=== PATIENT | male | born 1965 | race Caucasian/White ===

== ENCOUNTER 2020-09-13 16:58 | Inpatient (IN) | payer BC ==
[2020-09-13] MEDS ORDERED: SODIUM CHLORIDE 0.9% 1,000 ML IV ONE (17:07)
--- NOTE | 2020-09-13 17:09 | ED ---
General Adult HPI - General Chief complaint: Altered Mental Status Stated complaint: unresponsive Source: EMS Mode of arrival: EMS Limitations: altered mental status - History of Present Illness Initial comments: Patient presents to the ED by ambulance for evaluation. Per EMS, the patient's fiance reported to them that she left the patient for about a minute, and when she returned she found the patient unresponsive and lying on the ground. Per EMS, the patient's fiance also reported that the patient had "convulsions". Patient's blood glucose was 111 per EMS. Patient was transported to the ED in a c-collar. Per EMS, the patient's eyes have been open, but he has been unresponsive since they have been with him. Patient is not answering any questions at this time, and no other history is available at this time. - Related Data Home Medications Medication Instructions Recorded Confirmed EPINEPHrine (Auto Inject) [Epipen] 0.3 mg IM ONCE PRN 09/13/20 09/13/20 Glycopyrrolate [Robinul] 1 mg PO Q8H 09/13/20 09/13/20 Metoprolol Tartrate [Lopressor] 25 mg PO DAILY 09/13/20 09/13/20 Omeprazole 20 mg PO DAILY 09/13/20 09/13/20 Pyridostigmine [Mestinon] 60 mg PO TID 09/13/20 09/13/20 Rosuvastatin Calcium [Crestor] 40 mg PO DAILY 09/13/20 09/13/20 azaTHIOprine [Imuran] 100 mg PO DAILY 09/13/20 09/13/20 metFORMIN HCL [Glucophage] 1,000 mg PO BID 09/13/20 09/13/20 valACYclovir HCL [Valtrex] 500 mg PO BID 09/13/20 09/13/20 Allergies Allergy/AdvReac Type Severity Reaction Status Date / Time Penicillins Allergy Unknown Verified 09/13/20 17:56 Childhood Review of Systems ROS Statement: Those systems with pertinent positive or pertinent negative responses have been documented in the HPI. ROS Other: All systems not noted in ROS Statement are negative. Limitations: ROS unobtainable due to patients medical condition Past Medical History Past Medical History: Unable to Obtain History of Any Multi-Drug Resistant Organisms: Unobtainable Past Surgical History: Unable to Obtain Past Psychological History: Unable to Obtain Smoking Status: Unknown if ever smoked Past Alcohol Use History: Unable to Obtain Past Drug Use History: Unable to Obtain - Past Family History Father Additional Family Medical History / Comment(s): at 33 for [place] Mother Family Medical History: Cancer Additional Family Medical History / Comment(s): at 85 - Uterine Cancer General Exam Limitations: altered mental status General appearance: other (Patient's eyes are open, and he is blinking, but he is nonverbal and he has no spontaneous extremity movement) Head exam: Present: atraumatic, normocephalic Eye exam: Present: normal appearance, PERRL ENT exam: Present: mucous membranes moist Neck exam: Present: other (C-collar is in place; trachea is in midline) Respiratory exam: Present: normal lung sounds bilaterally. Absent: respiratory distress, wheezes, rales, rhonchi, stridor Cardiovascular Exam: Present: regular rate, normal rhythm, normal heart sounds, other (Normal radial pulses bilaterally) GI/Abdominal exam: Present: soft. Absent: distended, tenderness, guarding Extremities exam: Present: normal inspection. Absent: pedal edema Back exam: Present: normal inspection Neurological exam: Present: other (Patient's eyes are open, and he is blinking, but he is nonverbal and he has no spontaneous extremity movement; patient has no response to painful stimulus; PERRL) Skin exam: Present: warm, dry, intact, normal color Course Vital Signs 09/13/20 09/13/20 09/13/20 17:02 17:15 17:30 Temperature 98.2 F Pulse Rate 82 91 86 Pulse Rate [ Pulse Oximetery ] Respiratory 16 16 16 Rate Blood Pressure 142/91 142/91 159/95 Blood Pressure [Left Arm Supine] O2 Sat by Pulse 100 100 99 Oximetry 09/13/20 09/13/20 09/13/20 17:45 18:30 20:03 Temperature 98.4 F Pulse Rate 88 76 Pulse Rate [ 77 Pulse Oximetery ] Respiratory 18 14 16 Rate Blood Pressure 139/91 144/89 Blood Pressure 150/78 [Left Arm Supine] O2 Sat by Pulse 99 100 97 Oximetry - Reevaluation(s) Reevaluation #1: 09/13/20 17:23 Case, H&P and pending ED workup were discussed with Dr. Tam (neur ointerventionalist). He states that he will follow-up on the patient's CT imaging. He has no further recommendations at this time. 09/13/20 17:42 Dr. Tam states that he has reviewed the patient's CT/CTA imaging himself, and he does not see any abnormality. Given that the patient's symptoms are now improving, he does not feel that the patient is a TPA candidate at this time. 09/13/20 17:51 Patient is now in A&O 3 and moving all 4 extremities. Patient states that he does not recall getting to the emergency department today. Patient denies having any pain at this time. Horace arenas is now in the ED at bedside with the patient. She reports that she left the patient for about a minute while they were outside on their property, and when she returned she found the patient unresponsive and laying face down. She states that she turned him over, and she states that the patient had some "twitching" movements of his upper extremities. She states that she then called for an ambulance with the patient. Patient reportedly has a history of myasthenia gravis for which she is followed by a neurologist at [facility]. Patient also reportedly had seizures as a child, but is not currently taking any antiepileptic medications. Forrest reports that they did have some verbal arguments today. 09/13/20 19:06 Case, H&P, test results, my discussions with Dr. Tam as above and ED management were discussed with Dr. Mosher. He accepts hospital admission. He agrees with neurology consultation. He recommends ordering prolactin and CK levels. He has no further recommendations at this time. 09/13/20 19:11 Patient is now much more alert and responsive. Patient currently has a nonfocal neurological exam. Patient continues to deny having any symptoms besides feeling weak and tired. Patient, forrest and daughter are all aware of the patient's test results, and they all agree with hospital admission at this time. EKG Findings - EKG Comments: EKG Findings:: Normal sinus rhythm, ventricular rate of 88 bpm, no ectopy, normal OH and QRS intervals, prolonged QTc interval of 481 ms, normal axis, no ST or T-wave abnormality Medical Decision Making - Medical Decision Making Patient's labs and imaging studies are all fairly unremarkable. Given the report from the patient's forrest, I suspect that the patient may have had a seizure, and that may be the explanation for the patient's symptoms and ED presentation. Will admit the patient to the hospital for observation and neurology consultation. Dr. Mosher has accepted hospital admission. - Lab Data Result diagrams: 09/13/20 18:23 09/13/20 17:30 Lab Results 09/13/20 09/13/20 09/13/20 Range/Units 17:30 17:30 17:30 WBC (3.8-10.6) k/uL RBC (4.30-5.90) m/uL Hgb (13.0-17.5) gm/dL Hct (39.0-53.0) % MCV (80.0-100.0) fL MCH (25.0-35.0) pg MCHC (31.0-37.0) g/dL RDW (11.5-15.5) % Plt Count (150-450) k/uL MPV Neutrophils % % Lymphocytes % % Monocytes % % Eosinophils % % Basophils % % Neutrophils # (1.3-7.7) k/uL Lymphocytes # (1.0-4.8) k/uL Monocytes # (0-1.0) k/uL Eosinophils # (0-0.7) k/uL Basophils # (0-0.2) k/uL PT (9.0-12.0) sec INR (<1.2) APTT (22.0-30.0) sec Sodium 138 (137-145) mmol/L Potassium 4.0 (3.5-5.1) mmol/L Chloride 105 (98-107) mmol/L Carbon Dioxide 25 (22-30) mmol/L Anion Gap 8 mmol/L BUN 19 (9-20) mg/dL Creatinine 0.81 (0.66-1.25) mg/dL Est GFR (CKD-EPI)AfAm >90 (>60 ml/min/1.73 sqM) Est GFR (CKD-EPI)NonAf >90 (>60 ml/min/1.73 sqM) Glucose 106 H (74-99) mg/dL Calcium 9.1 (8.4-10.2) mg/dL Total Bilirubin 0.7 (0.2-1.3) mg/dL AST 37 (17-59) U/L ALT 35 (4-49) U/L Alkaline Phosphatase 49 (38-126) U/L Creatine Kinase 322 H (55-170) U/L Troponin I <0.012 (0.000-0.034) ng/mL Total Protein 7.0 (6.3-8.2) g/dL Albumin 4.3 (3.5-5.0) g/dL Serum Alcohol <10 mg/dL 09/13/20 09/13/20 Range/Units 18:23 18:23 WBC 7.5 (3.8-10.6) k/uL RBC 4.05 L (4.30-5.90) m/uL Hgb 13.4 (13.0-17.5) gm/dL Hct 38.5 L (39.0-53.0) % MCV 95.1 (80.0-100.0) fL MCH 33.2 (25.0-35.0) pg MCHC 34.9 (31.0-37.0) g/dL RDW 12.9 (11.5-15.5) % Plt Count 185 (150-450) k/uL MPV 7.6 Neutrophils % 75 % Lymphocytes % 14 % Monocytes % 8 % Eosinophils % 2 % Basophils % 0 % Neutrophils # 5.7 (1.3-7.7) k/uL Lymphocytes # 1.0 (1.0-4.8) k/uL Monocytes # 0.6 (0-1.0) k/uL Eosinophils # 0.1 (0-0.7) k/uL Basophils # 0.0 (0-0.2) k/uL PT 10.6 (9.0-12.0) sec INR 1.0 (<1.2) APTT 18.0 L (22.0-30.0) sec Sodium (137-145) mmol/L Potassium (3.5-5.1) mmol/L Chloride (98-107) mmol/L Carbon Dioxide (22-30) mmol/L Anion Gap mmol/L BUN (9-20) mg/dL Creatinine (0.66-1.25) mg/dL Est GFR (CKD-EPI)AfAm (>60 ml/min/1.73 sqM) Est GFR (CKD-EPI)NonAf (>60 ml/min/1.73 sqM) Glucose (74-99) mg/dL Calcium (8.4-10.2) mg/dL Total Bilirubin (0.2-1.3) mg/dL AST (17-59) U/L ALT (4-49) U/L Alkaline Phosphatase (38-126) U/L Creatine Kinase (55-170) U/L Troponin I (0.000-0.034) ng/mL Total Protein (6.3-8.2) g/dL Albumin (3.5-5.0) g/dL Serum Alcohol mg/dL - Radiology Data Radiology results: report reviewed (Chest x-ray: Hypoventilatory changes; pelvis x-ray: No acute osseous abnormality) Noncontrast head CT: No acute intracranial abnormality CT angiography head/neck: No definite acute abnormality of the CTA head/neck within the limitations of the study. Noncontrast cervical spine CT: There is no acute fracture or dislocation evident in the cervical spine. Critical Care Time Critical Care Time: Yes Total Critical Care Time: 60 Disposition Clinical Impression: Unresponsive episode Narrative: Possible seizure Disposition: ADMITTED IP TO THIS [facility] Condition: Stable Is patient prescribed a controlled substance at d/c from ED?: No Time of Disposition: 19:07
--- NOTE | 2020-09-13 17:30 | CT ---
EXAM: CT brain wo con for TPA CLINICAL HISTORY: Patient found unresponsive. Code stroke. COMPARISON: None TECHNIQUE: Contiguous axial noncontrast images of the brain were obtained. Coronal and sagittal refor mats were generated and reviewed. Automated dose control was used for this exam. FINDINGS: There is no evidence for intracranial hemorrhage, mass effect or midline shift. The white matter is g rossly preserved. Ventricular size and configuration is within normal limits for degree of parenchymal volume. The paranasal sinuses are clear. The mastoid air cells are clear. No evidence for calvarial fracture. IMPRESSION: No acute intracranial abnormality.
--- NOTE | 2020-09-13 17:58 | CT ---
EXAMINATION TYPE: CT angio head neck DATE OF EXAM: 09/13/2020 HISTORY: neuro deficit COMPARISON: None available. CT DLP: 600.4 mGycm. Automated Exposure Control for Dose Reduction was Utilized. TECHNIQUE: CTA scan of the head and neck is performed with IV Contrast, patient injected with 65 mL of Isovue 370, axial images are obtained, coronal and sagittal reformatted images are reviewed. Three -D reconstructed images are created on an independent workstation and reviewed. FINDINGS: There is decreased opacification of the arteries, limiting evaluation. There is normal three-vessel b ranching of the aorta. There is mild less than 50% stenosis of the left vertebral artery V4 segment. No evidence of high-grade stenosis, dissection or aneurysm seen in the bilateral common carotid, cerv ical internal carotid and vertebral arteries. There is no evidence of high-grade stenosis, dissection or aneurysm in the intracranial internal nichole tid arteries, anterior, middle and posterior cerebral arteries as well as in the imaged vertebral and basilar arteries. The communicating arteries are unremarkable. IMPRESSION: No definite acute abnormality of the CTA head/neck within the limitations of the study.
--- NOTE | 2020-09-13 17:59 | XR ---
Result: History: Pain status post fall. Comparison: None available. Technique: AP view of the pelvis was reviewed. Findings: No acute fracture or dislocation is seen. The visualized osseous structures are in anatomic alignmen t. The bilateral hips are grossly preserved. Impression: No acute osseous abnormality.
--- NOTE | 2020-09-13 18:00 | XR ---
EXAMINATION TYPE: XR chest 1V portable DATE OF EXAM: 09/13/2020 COMPARISON: NONE HISTORY: Altered mental status. TECHNIQUE: Single frontal view of the chest is obtained. FINDINGS: The lungs are hypoaerated. There is mild perihilar hazy opacity. There is no significant i nfiltrate, pleural effusion, or pneumothorax seen. The cardiac silhouette size is mildly enlarged. The osseous structures are intact. IMPRESSION: Hypoventilatory changes.
[2020-09-13 18:09] LABS: ALT 35 U/L (4-49); AST 37 U/L (17-59); African American GFR (CKD) >90 (>60 ml/min/1.73 sqM); Albumin 4.3 g/dL (3.5-5.0); Alcohol <10 mg/dL; Alkaline Phosphatase 49 U/L (38-126); Anion Gap 8 mmol/L; Blood Urea Nitrogen 19 mg/dL (9-20); Calcium 9.1 mg/dL (8.4-10.2); Carbon Dioxide 25 mmol/L (22-30); Chloride 105 mmol/L (98-107); Glucose 106 mg/dL (74-99); Non-African American GFR(CKD) >90 (>60 ml/min/1.73 sqM); Sodium 138 mmol/L (137-145); Total Bilirubin 0.7 mg/dL (0.2-1.3)
[2020-09-13 18:42] LABS: Basophils % (A) 0 %; Eosinophils # (A) 0.1 k/uL (0-0.7); Eosinophils % (A) 2 %; HCT 38.5 % (39.0-53.0); HGB 13.4 gm/dL (13.0-17.5); Lymphocytes % (A) 14 %; MCH 33.2 pg (25.0-35.0); MCHC 34.9 g/dL (31.0-37.0); MCV 95.1 fL (80.0-100.0); Mean Platelet Volume 7.6; Monocytes # (A) 0.6 k/uL (0-1.0); Monocytes % (A) 8 %; Neutrophils # (A) 5.7 k/uL (1.3-7.7); Neutrophils % (A) 75 %; Platelet Count 185 k/uL (150-450); RBC 4.05 m/uL (4.30-5.90); RDW 12.9 % (11.5-15.5); WBC 7.5 k/uL (3.8-10.6)
--- NOTE | 2020-09-13 18:47 | CT ---
EXAMINATION TYPE: CT cervical spine wo con DATE OF EXAM: 09/13/2020 COMPARISON: None available. HISTORY: Pain status post fall. Automated exposure control for dose reduction was used. TECHNIQUE: CT scan of the cervical spine is obtained without contrast, axial images are obtained, sa gittal and coronal reformatted images are also reviewed. FINDINGS: Cervical spine is visualized in its entirety from C1 through upper thoracic levels, demonst rates satisfactory alignment without evidence of acute fracture or dislocation. There is mild to mode rate cervical spondylosis most notable at C5-C7. Prevertebral soft tissue appears within normal limit s. The C1-C2 articulation is within normal limits on the coronal images. IMPRESSION: There is no acute fracture or dislocation evident in the cervical spine.
[2020-09-13 18:56] LABS: Prothrombin Time 10.6 sec (9.0-12.0)
[2020-09-13 20:08] LABS: Glucose,Whole Blood 96 mg/dL (75-99)
[2020-09-13] MEDS: PYRIDOSTIGMINE 60 MG TAB PO SCH (20:27)
[2020-09-13] MEDS: GLYCOPYRROLATE 1 MG TAB PO SCH (20:29)
[2020-09-13] MEDS: ATORVASTATIN 80 MG TAB PO SCH (20:38)
[2020-09-13] MEDS ORDERED: metFORMIN 500 MG TAB PO SCH (21:00)
[2020-09-13 21:26] LABS: Appearance,Urine Clear (Clear); Bilirubin,Urine Negative (Negative); Blood,Urine Negative (Negative); Color,Urine Yellow; Glucose,Urine (UA) Negative (Negative); Ketones,Urine 1+ (Negative); Leukocyte Esterase,Urine Negative (Negative); Nitrite,Urine Negative (Negative); PH, Urine 5.5 (5.0-8.0); Protein,Urine Negative (Negative); Specific Gravity,Urine 1.018 (1.001-1.035); Urobilinogen,Urine <2.0 mg/dL (<2.0)
[2020-09-13 21:41] LABS: Amphetamine Screen,Urine Not Detected (NotDetected); Barbiturate Screen,Urine Not Detected (NotDetected); Benzodiazepines Screen,Urine Not Detected (NotDetected); Cocaine Screen,Urine Not Detected (NotDetected); Methadone Screen, Urine Not Detected (NotDetected); Opiate Screen,Urine Not Detected (NotDetected); Oxycodone Screen, Urine Not Detected (NotDetected); Phencyclidine Screen,Urine Not Detected (NotDetected); Tricyclic Antidepressant,Urine Not Detected (NotDetected); Urn Cannabinoid Scrn Not Detected (NotDetected)
[2020-09-13 22:50] LABS: Prolactin 2.9 ng/mL (2.1-17.7)
--- NOTE | 2020-09-13 22:54 | P.HPIM ---
History of Present Illness H&P Date: 09/13/20 Patient is a 55-year-old male with a PMH of myasthenia gravis, type II DM, and hyperlipidemia who presented to the emergency room after an episode of syncope. The history supplemented by the fianc at the bedside. The patient reports that he was at his house, working outside in the goat shed along with her fianc, and the next thing he remembers is waking up in the hospital. The fianc who was close by found the patient placed on the ground, unresponsive. She last saw him 1-2 minutes prior. Upon approaching the patient, she noticed that he was having intermittent twitching of his arms but was breathing. She activated EMS. The EMS documented a blood glucose of 111 at the scene. Upon arrival at the hospital, the patient was found to be awake but unresponsive. At time of interview, the patient's mentation had improved significantly and as per his family at the bedside, the patient was back at his baseline. The patient denied experiencing a prodrome including shortness of breath, chest discomfort, or palpitations. He also denied urinary incontinence or tongue biting. Reports f eeling fatigued. He reported 2 additional episodes of loss of consciousness in the past 2 months both of which were sudden loss of consciousness with no prodrome and no post ictal symptoms. He reports being admitted to [facility] last month after treatment of IVIG for his myasthenia gravis with complaints of chest discomfort and shortness of breath. He reportedly underwent an echocardiogram which was unremarkable. Denied having undergone a stress test or cardiac catheterization. At time of interview, he denied any additional complaints aside from feeling fatigued. Denied chest pain, shortness of breath, nausea, vomiting, diaphoresis. Denied visual disturbances, weakness, numbness, dizziness, or headaches. He underwent an extensive evaluation in the emergency room with a CT angiogram head and neck that was unremarkable. A brain CT and CT cervical spine were also unremarkable. Chest x-ray revealed no acute abnormalities. EKG revealed normal sinus rhythm at 88 bpm with a prolonged QT. Laboratory evaluation was remarkable for a creatine kinase 322,, troponin less than 0.012, and an unremarkable urine toxicology screen. Review of systems: Pertinent positives and negatives as discussed in HPI, a complete review of systems was performed and all other systems are negative. Physical examination: General: non toxic, no distress, appears at stated age, obese Derm: no unusual rashes/lesions no unusual ecchymoses, warm, dry Head: atraumatic, normocephalic, symmetric Eyes: EOMI, no lid lag, anicteric sclera, pupils equal round reactive to light ENT: Nose and ears atraumatic, no thrush, no pharyngeal erythema Neck: No thyromegaly, no cervical lymphadenopathy, trachea midline, supple Mouth: no lip lesion, mucus membranes moist, no tongue bites noted Cardiovascular: S1S2 reg, no murmur, positive posterior tibial pulse bilateral, no edema, capillary refill less than 2 seconds Lungs: CTA bilateral, no rhonchi, no rales , no accessory muscle use Abdominal: soft, nontender to palpation, no guarding, no appreciable organomegaly, normal bowel sounds Ext: no gross muscle atrophy, muscle strength 5 out of 5 in all 4 extremities grossly, no contractures, Neuro: CN II-XI grossly intact, light touch intact all 4 extremities, finger to nose within normal limits, Psych: Alert, oriented, appropriate affect Assessment/plan Syncope, seizure versus cardiogenic in nature -Hold off on anti-seizure medications at this time -Prior episodes of syncope more consistent with cardiogenic cause -Prolactin pending -Echocardiogram, cardiac monitoring -Consult neurology -Fall, seizure, aspiration precautions -Consult Cardiology -- patient may benefit from Holter monitor Prolonged QT -Avoid further prolonging agents Elevated creatinine kinase -IV hydration Chronic conditions: Myasthenia gravis, type II DM, hyperlipidemia -Continue with home meds -Lispro insulin sliding scale with blood glucose monitoring -Check A1c -Hold oral hypoglycemics DVT prophylaxis -Heparin subcu The patient is admitted with an anticipated less than 2 midnight stay for evalua tion of syncope. CODE STATUS: Full Code Discussed with: Patient Anticipated discharge date: in am Anticipated discharge place: Home A total of 35 minutes was spent on the care of this complex patient more than 50% of the time was spent in counseling and care coordination. Past Medical History Past Medical History: Unable to Obtain Additional Past Medical History / Comment(s): myasthenia gravis, diverticulitits, IBS, COVID survivor History of Any Multi-Drug Resistant Organisms: Unobtainable Past Surgical History: Unable to Obtain Past Anesthesia/Blood Transfusion Reactions: No Reported Reaction Past Psychological History: Unable to Obtain Smoking Status: Unknown if ever smoked Past Alcohol Use History: Unable to Obtain Past Drug Use History: Unable to Obtain - Past Family History Father Additional Family Medical History / Comment(s): at 33 for [place] Mother Family Medical History: Cancer Additional Family Medical History / Comment(s): at 85 - Uterine Cancer Medications and Allergies Home Medications Medication Instructions Recorded Confirmed Type EPINEPHrine (Auto Inject) [Epipen] 0.3 mg IM ONCE PRN 09/13/20 09/13/20 History Glycopyrrolate [Robinul] 1 mg PO Q8H 09/13/20 09/13/20 History Metoprolol Tartrate [Lopressor] 25 mg PO DAILY 09/13/20 09/13/20 History Omeprazole 20 mg PO DAILY 09/13/20 09/13/20 History Pyridostigmine [Mestinon] 60 mg PO TID 09/13/20 09/13/20 History Rosuvastatin Calcium [Crestor] 40 mg PO DAILY 09/13/20 09/13/20 History azaTHIOprine [Imuran] 100 mg PO DAILY 09/13/20 09/13/20 History metFORMIN HCL [Glucophage] 1,000 mg PO BID 09/13/20 09/13/20 History valACYclovir HCL [Valtrex] 500 mg PO BID 09/13/20 09/13/20 History Allergies Allergy/AdvReac Type Severity Reaction Status Date / Time Penicillins Allergy Unknown Verified 09/13/20 17:56 Childhood Physical Exam Vitals: Vital Signs Temp Pulse Pulse Resp BP BP Pulse Ox 09/13/20 20:52 16 09/13/20 20:03 98.4 F 77 16 150/78 97 09/13/20 18:30 76 14 144/89 100 09/13/20 17:45 88 18 139/91 99 09/13/20 17:30 86 16 159/95 99 09/13/20 17:15 91 16 142/91 100 09/13/20 17:02 98.2 F 82 16 142/91 100 Intake and Output 09/13/20 09/13/20 09/13/20 06:59 14:59 22:59 Intake Total 480 Balance 480 Intake: Oral 480 Other: Weight 123.377 kg Results CBC & Chem 7: 09/13/20 18:23 09/13/20 17:30 Labs: Abnormal Lab Results - Last 24 Hours (Table) 09/13/20 09/13/2021 Range/Units 17:30 17:30 18:23 RBC 4.05 L (4.30-5.90) m/uL Hct 38.5 L (39.0-53.0) % APTT (22.0-30.0) sec Glucose 106 H (74-99) mg/dL Creatine Kinase 322 H (55-170) U/L Urine Ketones (Negative) 09/13/20 09/13/20 Range/Units 18:23 21:05 RBC (4.30-5.90) m/uL Hct (39.0-53.0) % APTT 18.0 L (22.0-30.0) sec Glucose (74-99) mg/dL Creatine Kinase (55-170) U/L Urine Ketones 1+ H (Negative) Thrombosis Risk Factor Assmnt - Choose All That Apply Any of the Below Risk Factors Present?: Yes Each Factor Represents 1 point: Age 41-60 years, Medical pt on bed rest, Obesity (BMI >25) Thrombosis Risk Factor Assessment Total Risk Factor Score: 3 Thrombosis Risk Factor Assessment Level: Moderate Risk
[2020-09-13] MEDS: SODIUM CHLORIDE 0.9% 1,000 ML IV SCH (23:45)
[2020-09-13] MEDS: HEPARIN SODIUM,PORCINE/PF 5,000 UNIT/0.5 ML SYRINGE SQ SCH (23:45)
[2020-09-14 06:08] LABS: Basophils # (A) 0.1 k/uL (0-0.2); Basophils % (A) 1 %; Eosinophils # (A) 0.4 k/uL (0-0.7); Eosinophils % (A) 5 %; HCT 38.2 % (39.0-53.0); Lymphocytes # (A) 1.5 k/uL (1.0-4.8); Lymphocytes % (A) 23 %; MCH 32.6 pg (25.0-35.0); Monocytes # (A) 0.5 k/uL (0-1.0); Monocytes % (A) 8 %; Neutrophils % (A) 62 %; Platelet Count 201 k/uL (150-450); RBC 3.98 m/uL (4.30-5.90); WBC 6.4 k/uL (3.8-10.6)
[2020-09-14 06:22] LABS: ALT 31 U/L (4-49); AST 36 U/L (17-59); African American GFR (CKD) >90 (>60 ml/min/1.73 sqM); Albumin 3.8 g/dL (3.5-5.0); Albumin/Globulin Ratio 1.6; Alkaline Phosphatase 47 U/L (38-126); Anion Gap 5 mmol/L; Blood Urea Nitrogen 14 mg/dL (9-20); Calcium 8.8 mg/dL (8.4-10.2); Carbon Dioxide 27 mmol/L (22-30); Chloride 106 mmol/L (98-107); Creatine Kinase 176 U/L (55-170); Globulin 2.4 g/dL; Glucose 119 mg/dL (74-99); Non-African American GFR(CKD) >90 (>60 ml/min/1.73 sqM); Potassium 4.1 mmol/L (3.5-5.1); Sodium 138 mmol/L (137-145); Total Bilirubin 0.8 mg/dL (0.2-1.3); Total Protein 6.2 g/dL (6.3-8.2)
[2020-09-14 07:05] LABS: Glucose,Whole Blood 126 mg/dL (75-99)
[2020-09-14] MEDS: INSULIN ASPART (NovoLOG) 100 UNIT/ML VIAL SQ SCH ×4 (08:12→20:57)
[2020-09-14] MEDS: PYRIDOSTIGMINE 60 MG TAB PO SCH ×3 (08:17→20:57)
[2020-09-14] MEDS: azaTHIOprine 50 MG TAB PO SCH (08:17)
[2020-09-14] MEDS: HEPARIN SODIUM,PORCINE/PF 5,000 UNIT/0.5 ML SYRINGE SQ SCH ×2 (08:18→16:14)
[2020-09-14] MEDS: PANTOPRAZOLE 40 MG TABLET PO SCH (08:18)
[2020-09-14] MEDS: METOPROLOL TARTRATE 25 MG TAB PO SCH (08:18)
[2020-09-14] MEDS ORDERED: ATORVASTATIN 80 MG TAB PO SCH (09:00)
[2020-09-14] MEDS ORDERED: LACOSAMIDE 50 MG TABLET PO STA (10:10)
--- NOTE | 2020-09-14 10:22 | P.CNNES ---
History of Present Illness Consult date: 09/14/20 Requesting physician: Jose F Shetty Reason for Consult: unresponsiveness episode, possible seizure History of Present Illness: This is a 55-year-old gentleman with medical history of newly diagnosed myasthenia gravis, type 2 diabetes, hyperlipidemia who presented to the hospital on 09/13/2020 after an episode of unresponsiveness. History was obtained from patient and his fiance who is at bedside. Per the patient yesterday he was working outside in the [employer] shed around possibly 4pm yesterday and remembers filling a pucket (his partner was not too far away from him) then he became unresponsiveness and fell face down. She said that he wasn't foaming around the mouth but the when his eyes were open and he was looking towards the left and had a staring gaze. He has some tremor of the upper extremities and arching of the back. He did not tonic-clonic the movement and he had arching of his back. She denies seeing any foaming around the mouth. She called EMS immediately as a result. Per his partner she stated that he was unresponsive for total about an hour. Patient denies any urinary or bowel incontinence. That he stated that he woke up by being in the hospital and does not recall what happened in between that. He denies of any chest pain, palpitation, nausea, vomiting, visual disturbance the or headache prior to the event. He denies of any fever. He denies of any focal weakness, numbness, difficulty getting his words out. He feels he is back to baseline currently. He has not been drinking for 3 weeks apart that he was drinking about 2 days but never had any alcohol withdrawal is. Denies any tobacco use or any illicit drug use. Some of the patient's home medication includes metoprolol 25 mg daily, Crestor 4 mg daily, Mestinon 60 mg 1 tablet 3 times a day, Imuran 100 mg daily, e pinephrine , metformin, Prednisone 20mg daily. Per the patient's he had the 2 other episodes where he became unresponsive: He said he had a prior episode in July 2020 and he was at home, in the kitchen bringing in the grocery then all of a sudden he fell down and became unresponsive his partner was beside him and she said it was very quick and the he responded the immediately right afterwards. No jerk in of any extremity, foaming around the mouth or urinary or bowel incontinence. He didn't have any warning signs prior to the episode that. He also had another episode that in August 2020 where he was a hold alone and he was vacuuming then all of a sudden he found himself on the floor and does not know for how long he was down for but denies any bladder or bowel bladder incontinence or tongue bite or soreness. He said at its as a child he was on phenobarbital until the age of 12-13 years-old and was having yearly EEG's by neurologist but could not tell the if he truly had seizures or not and he could not tell me and doesn't remember what his symptoms were if he did have seizures and what was the findings of the EEG or the workup in the first 12-13 years of his life. He said his mom is so unable to retrieve the information and that his physician he's not sure if he is around or not. Regarding history he believes he was a product of term, normal vaginal delivery, no complication. He was the only child but he doesn't recall his parents have history of seizures. He was diagnosed with myasthenia gravis and the January 2020 and had extensive workup and the January 2020. He said that he was having diplopia both eyes one over the other and had the drooping of the face and strokelike symptoms. Initially he was worked up for stroke and everything was negative then the acetylcholine receptor antibody was positive. He had MRI of the brain he had EEG and was all negative. He is seeing Dr. Rukhsana lambert at [facility] for his Myasthenia Gravis. Regarding the medication he said that the Mestinon 60 milligram 1 tablet 3 times a day (started 01/2020), Imuran 100mg daily (started 04/2020), Prednisone 20mg daily, Glycopyrrolate only received 2 week dose in the past but is not on it. IVIG once a month and should be getting 2 days of IVIG (was started in 08/25 and had 4 days (in which he had bradycardia on his 4th day) and is scheduled two d ays worth tomorrow at home). Of note regarding his myasthenia gravis he was at [facility] last month and was given IVIG and had that chest discomfort and shortness of breath he had an echocardiogram was unremarkable. Some other workup in the hospital consisted of Initial vital signs: Blood pressure of 140/91, heart rate of 82, average of 98.2 Fahrenheit axillary, respiratory of 16 and pulse ox of 100 on nonrebreather at 15. Since the patient has been the hospital he's been afebrile. His initial white blood cell on the repeatable blood cell are within normal limits initial one was 7.5 thousand. And from a neurological standpoint the CBC with differential seems unremarkable. Regarding his chemistry panel his initial serum glucose is 106 and non- impressive. CK level was 322 on presentation and and it came down to 176. Otherwise rest of the chemistry panel seems within normal limits. Calcium is 9.1, sodium is 138, AST of 37 8 ALT of 35, creatinine is 0.81 and those are all within normal limits. CT brain is reported as no acute intracranial abnormality. CT angiography of the head and neck is reported as no definite acute abnormality of the CT angiography of the head and neck within the limitation of the study. CT cervical spine is reported as there is no acute fracture or dislocation evident in the cervical spine. EKG is reported as normal sinus rhythm. Prolonged QT. The QT/QTC is 398/481. Abnormal EKG. Review of Systems Review of system: The 12 point system was reviewed and apparent positive and negative per HPI. Past Medical History Past Medical History: Unable to Obtain Additional Past Medical History / Comment(s): myasthenia gravis, div erticulitits, IBS, COVID survivor History of Any Multi-Drug Resistant Organisms: Unobtainable Past Surgical History: Unable to Obtain Past Anesthesia/Blood Transfusion Reactions: No Reported Reaction Past Psychological History: Unable to Obtain Smoking Status: Unknown if ever smoked Past Alcohol Use History: Unable to Obtain Past Drug Use History: Unable to Obtain - Past Family History Father Additional Family Medical History / Comment(s): at 33 for [place] Mother Family Medical History: Cancer Additional Family Medical History / Comment(s): at 85 - Uterine Cancer Medications and Allergies Home Medications Medication Instructions Recorded Confirmed Type EPINEPHrine (Auto Inject) [Epipen] 0.3 mg IM ONCE PRN 09/13/20 09/13/20 History Glycopyrrolate [Robinul] 1 mg PO Q8H 09/13/20 09/13/20 History Metoprolol Tartrate [Lopressor] 25 mg PO DAILY 09/13/20 09/13/20 History Omeprazole 20 mg PO DAILY 09/13/20 09/13/20 History Pyridostigmine [Mestinon] 60 mg PO TID 09/13/20 09/13/20 History Rosuvastatin Calcium [Crestor] 40 mg PO DAILY 09/13/20 09/13/20 History azaTHIOprine [Imuran] 100 mg PO DAILY 09/13/20 09/13/20 History metFORMIN HCL [Glucophage] 1,000 mg PO BID 09/13/20 09/13/20 History valACYclovir HCL [Valtrex] 500 mg PO BID 09/13/20 09/13/20 History Allergies Allergy/AdvReac Type Severity Reaction Status Date / Time Penicillins Allergy Unknown Verified 09/13/20 17:56 Childhood Physical Examination - Vital Signs Vital Signs: Vital Signs Temp Pulse Pulse Resp BP BP Pulse Ox 09/14/20 07:00 97.8 F 75 16 117/74 95 09/14/20 02:00 20 09/14/20 01:27 96.9 F L 67 20 105/68 96 09/13/20 20:52 16 09/13/20 20:03 98.4 F 77 16 150/78 97 09/13/20 18:30 76 14 144/89 100 09/13/20 17:45 88 18 139/91 99 09/13/20 17:30 86 16 159/95 99 09/13/20 17:15 91 16 142/91 100 09/13/20 17:02 98.2 F 82 16 142/91 100 Intake and Output 09/13/20 09/14/20 09/14/20 22:59 06:59 14:59 Intake Total 480 Output Total 1200 Balance 480 -1200 Intake: Oral 480 Output: Urine 1200 Other: Weight 123.377 kg GENERAL: The patient is lying in bed and is not in acute distress. CHEST: The heart rate is regular rate rhythm. No murmurs to auscultation. No carotid bruit bilaterally. LUNG: Clear to auscultation bilaterally no wheezing noted throughout. Not labored breathing. ABDOMEN/GI: Bowel sounds present in all 4 quadrants. No tenderness to palpation throughout. NEUROLOGICAL: Higher mental function: The patient is awake, alert, oriented to self, place and time. Patient is following commands. No aphasia and no neglect. Cranial nerves: The pupils are round, equal and reactive to light and accommodation. Visual powell are full to confrontation throughout. Extraocular movement is intact no nystagmus is noted. Facial sensation is normal to touch throughout. The facial strength is normal throughout. Hearing is normal bilaterally to hand rub. Tongue is midline and moved [id number] without any difficulty. No dysarthria is noted. Shoulder shrug is normal bilaterally. Motor: Gait is deferred. The strength is 5 over 5 throughout. Normal tone and bulk. Cerebellum: Normal finger to nose heel to mares bilaterally. Sensation: Sensation is normal to touch throughout. Reflexes (right/left):2+ throughout. Plantars are downgoing bilaterally. Results Urinalysis is negative for urinary tract infection Urine drug screen is not detected in the serum alcohol was less than 10 The basic coagulation studies seems within normal limits - Laboratory Findings CBC and BMP: 09/14/20 05:39 09/14/20 05:39 Abnormal Lab Findings: Abnormal Labs 09/13/20 09/13/20 09/13/20 17:30 17:30 18:23 RBC 4.05 L Hct 38.5 L APTT Creatinine Glucose 106 H POC Glucose (mg/dL) Creatine Kinase 322 H Total Protein Urine Ketones 09/13/20 09/13/20 09/14/20 18:23 21:05 05:39 RBC 3.98 L Hct 38.2 L APTT 18.0 L Creatinine Glucose POC Glucose (mg/dL) Creatine Kinase Total Protein Urine Ketones 1+ H 09/14/20 09/14/20 05:39 06:58 RBC Hct APTT Creatinine 0.62 L Glucose 119 H POC Glucose (mg/dL) 126 H Creatine Kinase 176 H Total Protein 6.2 L Urine Ketones Assessment and Plan Assessment: * Unresponsiveness/Syncopal episodes (had one yesterday and was unresponsive for 1 hour, 2 prior episodes (July and August 2020 (one of episode was not clear seizure episode since quick onset and quick recovery). Seems due to seizure since patient possibly seizure as childhood and was on phenobarbital (He does not recall why he was on it for the first 12-13 years of his life and what symptoms he had and result of work-up. Also this current episode he had left gaze deviation, arched back, prolonged unresponsiveness and had positictal confusion which seems suspicious for seizure). His prolonged QTc increases risk of syncope (not sure if due to medication effect (his syncope started prior to Glycoplyorrate and was on it for two weeks only so unlikely this m edication as culprit). * Myasthenia Gravis (Diagnosed in 01/2020) * Diabetes type 2 * Hyperlipidemia Plan: I started the patient on Vimpat 50 mg 1 tablet twice a day and will load the patient with Vimpat 100 mg once. I ordered a routine EEG. If EEG is negative recommend a prolonged ambulatory EEG as outpatient. I ordered MRI the brain with and without 2-D echo is ordered and is pending. Ordered TSH level and orthostatic vitals. Patient is on continuous cardiac monitoring Patient is on seizure precaution. Every 4 hours neuro checks Patient was restarted on his home medication of Mestinon 60mg 1 tab tid, Imuran 100mg daily and Prednisone 20mg daily. I will start the patient on his IVIG 45gm once today and tomorrow (his monthly dose). Cardiology team is consulted We'll defer the rest of the medical management to the primary team. Patient was notified that per [place] DMV he is to avoid driving for 6 month until no further episodes of seizures last unresponsiveness. He is to avoid heights, using heavy machinery and the swimming unassisted. Upon discharge the patient needs to follow-up with his neurologist (Dr. Rukhsana lambert at [facility]) as an outpatient within 1-2 weeks. The plan was discussed with the patient, his significant other and the patient's nurse. Thank you for the consultation. Dr. Gaona will take over neurology service starting tomorrow. Lucius Esposito M.D. Neuro-hospitalist Time with Patient: Greater than 30
[2020-09-14 11:19] LABS: Glucose,Whole Blood 128 mg/dL (75-99)
[2020-09-14] MEDS ORDERED: IMMUNE GLOBULIN (GAMMAGARD) 20 GM in EMPTY BAG 1 BAG IV ONE (12:00)
[2020-09-14] MEDS ORDERED: IMMUNE GLOBULIN (GAMMAGARD) 5 GM in EMPTY BAG 1 BAG IV ONE (12:00)
--- NOTE | 2020-09-14 13:01 | CONS ---
CONSULTATION CHIEF COMPLAINT: Syncope. HISTORY OF PRESENT ILLNESS: Po is a 55-year-old gentleman with history of myasthenia gravis, hypertension and dyslipidemia along with diabetes, who is admitted to the hospital having had an episode of syncope. The patient states that he does not remember anything as to what happened. As per his , the patient was found face down in dirt and has had involuntary movements of the upper and lower extremities, did not have any bladder or bowel incontinence. She did a couple of chest compressions following which he gradually came around. His EKG did not reveal any ischemic changes. We do not have any cardiac enzymes on him. Creatinine is normal. Hemoglobin is normal. He has since been evaluated by a neurologist who is evaluating him for seizures. He has not had any documented tachy or Mason arrhythmias. His EKG shows sinus rhythm with prolonged QT interval. PAST MEDICAL HISTORY: Significant for hypertension, dyslipidemia, diabetes, myasthenia gravis. MEDICATIONS: Current medications include omeprazole, Lopressor, Valtrex, Crestor, Mestinon, EpiPen, Glucophage, Imuran. ALLERGIC: PENICILLIN. FAMILY HISTORY: Negative for premature coronary artery disease. SOCIAL HISTORY: Negative for current smoking, EtOH abuse, or drug abuse. REVIEW OF SYSTEMS: HEENT is unremarkable. CARDIAC as described above. RESPIRATORY as described above. GI negative. GENITOURINARY negative. ALLERGY/IMMUNOLOGY: None. SKIN negative. MUSCULOSKELETAL: Significant for arthritis. PSYCHOSOCIAL negative. ENDOCRINE negative. DERM: Negative. CONSTITUTIONAL: Negative. ONCOLOGICAL: Negative. INSOLE AND OUTSOLE PREPARER: Significant for myasthenia gravis. PHYSICAL EXAMINATION: On exam, comfortable at rest. Vital signs are stable. NECK: There is no jugular venous distention. Carotid upstroke is normal. There is no bruit. CHEST exam reveals good air entry bilaterally. HEART exam reveals first and second heart sounds. No gallop. No murmur. No rub. ABDOMEN is soft, nontender. Examination of EXTREMITIES did not reveal any edema. Peripheral pulses are felt. LABS: Labs show a hemoglobin of 13, platelet count is 201, potassium is 4.1. Creatinine is 0.6. AST, ALT are within normal limits. ASSESSMENT: Syncope versus seizure. So far the workup is negative. We will obtain a 2D echo on him to evaluate his LV function. Continue current medication. Please avoid QT prolonging drugs. His event could be related to his myasthenia and the medications that he is on. It could be cardiac, very likely it is seizure. Neurology is on the case. MMODL / IJN: [id number] /
--- NOTE | 2020-09-14 13:32 | P.PN ---
Subjective Progress Note Date: 09/14/20 Patient was seen by me this morning. He is laying comfortably in bed. He denies dizziness or lightheadedness. No acute events on pvc monitor overnight. Objective - Vital Signs Vital signs: Vital Signs Temp 97.8 F 09/14/20 07:00 Pulse 65 09/14/20 11:37 Resp 16 09/14/20 07:00 BP 123/80 09/14/20 11:37 Pulse Ox 95 09/14/20 07:00 Intake & Output 09/13/20 09/14/20 09/14/20 18:59 06:59 18:59 Intake Total 480 Output Total 1200 Balance -720 Weight 123.377 kg 123.377 kg Intake: Oral 480 Output: Urine 1200 - Exam General: The patient is awake and alert, in no distress Eye: there is normal conjunctiva bilaterally. Neck: The neck is supple, there is no JVD. Cardiovascular: Normal S1-S2, no S3-S4, no murmurs. Respiratory: Lungs clear to auscultation bilaterally Gastrointestinal: Abdomen is soft, nontender Musculoskeletal: There is no pedal edema. Neurological:. Speech is normal. Skin: Skin is warm and dry - Labs CBC & Chem 7: 09/14/20 05:39 09/14/20 05:39 Labs: Abnormal Lab Results - Last 24 Hours (Table) 09/13/20 09/13/20 09/13/20 Range/Units 17:30 17:30 18:23 RBC 4.05 L (4.30-5.90) m/uL Hct 38.5 L (39.0-53.0) % APTT (22.0-30.0) sec Creatinine (0.66-1.25) mg/dL Glucose 106 H (74-99) mg/dL POC Glucose (mg/dL) (75-99) mg/dL Creatine Kinase 322 H (55-170) U/L Total Protein (6.3-8.2) g/dL Urine Ketones (Negative) 09/13/20 09/13/20 09/14/20 Range/Units 18:23 21:05 05:39 RBC 3.98 L (4.30-5.90) m/uL Hct 38.2 L (39.0-53.0) % APTT 18.0 L (22.0-30.0) sec Creatinine (0.66-1.25) mg/dL Glucose (74-99) mg/dL POC Glucose (mg/dL) (75-99) mg/dL Creatine Kinase (55-170) U/L Total Protein (6.3-8.2) g/dL Urine Ketones 1+ H (Negative) 09/14/20 09/14/20 09/14/20 Range/Units 05:39 06:58 11:17 RBC (4.30-5.90) m/uL Hct (39.0-53.0) % APTT (22.0-30.0) sec Creatinine 0.62 L (0.66-1.25) mg/dL Glucose 119 H (74-99) mg/dL POC Glucose (mg/dL) 126 H 128 H (75-99) mg/dL Creatine Kinase 176 H (55-170) U/L Total Protein 6.2 L (6.3-8.2) g/dL Urine Ketones (Negative) Assessment and Plan Assessment: This is a 55-year-old male with past medical history noted below who presented to the hospital with a syncopal episode. Patient was evaluated in the ER and admitted to the hospital for further management of his medical problems noted below. 1. Suspected seizures, seen and evaluated by neurology. Started on Vimpat. EEG and MRI of the brain ordered. Continue seizure precautions. 2. Syncopal episode, possibly seizure. Patient was seen and evaluated by c ardiology. No events on pvc monitor. Echocardiogram ordered. 3. History of myasthenia gravis, continue home medication. Started on IVIG per neurology as patient apparently was getting outpatient at [facility] 4. Type 2 diabetes, hold home dose of metformin and continue sliding scale insulin Today, I reviewed his medication list and lab work results. He should is maintained on chronic prednisone treatment. We will continue telemetry monitoring. Repeat lab work in the morning
[2020-09-14] MEDS: predniSONE 20 MG TAB PO SCH (15:14)
[2020-09-14] MEDS ORDERED: diphenhydrAMINE 25 MG CAP PO STA (15:19)
[2020-09-14] MEDS ORDERED: ACETAMINOPHEN TAB 500 MG TAB PO STA (15:19)
[2020-09-14] MEDS ORDERED: ONDANSETRON 4 MG TAB PO STA (15:19)
[2020-09-14 17:24] LABS: Glucose,Whole Blood 121 mg/dL (75-99)
[2020-09-14] MEDS: SODIUM CHLORIDE 0.9% 1,000 ML IV SCH (19:27)
[2020-09-14] MEDS: valACYclovir 500 MG TAB PO SCH (20:13)
[2020-09-14] MEDS: ATORVASTATIN 80 MG TAB PO SCH (20:13)
[2020-09-14] MEDS: LACOSAMIDE 50 MG TABLET PO SCH (20:13)
[2020-09-14 20:43] LABS: Glucose,Whole Blood 172 mg/dL (75-99)
[2020-09-15] MEDS: HEPARIN SODIUM,PORCINE/PF 5,000 UNIT/0.5 ML SYRINGE SQ SCH ×4 (00:34→23:26)
[2020-09-15] MEDS: PANTOPRAZOLE 40 MG TABLET PO SCH (07:16)
[2020-09-15] MEDS: METOPROLOL TARTRATE 25 MG TAB PO SCH (07:16)
[2020-09-15] MEDS: LACOSAMIDE 50 MG TABLET PO SCH ×2 (07:17→20:17)
[2020-09-15] MEDS: azaTHIOprine 50 MG TAB PO SCH (07:17)
[2020-09-15] MEDS: predniSONE 20 MG TAB PO SCH (07:18)
[2020-09-15] MEDS: valACYclovir 500 MG TAB PO SCH ×2 (07:18→20:17)
[2020-09-15] MEDS: PYRIDOSTIGMINE 60 MG TAB PO SCH ×3 (07:18→21:00)
[2020-09-15 07:24] LABS: Glucose,Whole Blood 123 mg/dL (75-99)
[2020-09-15] MEDS: INSULIN ASPART (NovoLOG) 100 UNIT/ML VIAL SQ SCH ×4 (07:29→20:54)
--- NOTE | 2020-09-15 11:10 | P.PN ---
Subjective This is a pleasant 55-year-old male recently diagnosed with myasthenia gravis (12/2019). We are following secondary to a syncopal episode. Orthostatic vital signs are unremarkable. Telemetry tracings are negative for an arrhythmia or significant pauses. Blood pressure 128/76 heart rate 65 afebrile maintaining oxygen saturation on room air. He has no symptoms of chest discomfort or shortness of breath. GENERAL: Well-appearing, well-nourished and in no acute distress. NECK: Supple without JVD or thyromegaly. LUNGS: Breath sounds clear to auscultation bilaterally. Respiration equal and unlabored. No wheezes, rales or rhonchi. HEART: Regular rate and rhythm without murmurs, rubs or gallops. S1 and S2 heard. EXTREMITIES: Normal range of motion, no edema. No clubbing or cyanosis. Peripheral pulses intact. ASSESSMENT Syncope, suspected seizures Myasthenia gravis Hypertension Diabetes mellitus PLAN Stable from a cardiac perspective. Ongoing neurology evaluation. We will follow along as needed, please call with further questions or concerns. Nurse Practitioner note has been reviewed, I agree with a documented findings a nd plan of care. Patient was seen and examined. Objective - Vital Signs Vital signs: Vital Signs Temp 98.4 F 09/15/20 07:00 Pulse 65 09/15/20 07:00 Resp 17 09/15/20 07:00 BP 128/76 09/15/20 07:00 Pulse Ox 98 09/15/20 07:00 Intake & Output 09/14/20 09/15/20 09/15/20 18:59 06:59 18:59 Intake Total 200 118 Balance 200 118 Intake: Intake, IV Titration 200 Amount Immune Globulin ( 200 Gammagard) 20 gm In Empty Bag 1 bag @ Per Protocol IV .Q0M ONE Rx#: [id number] Oral 118 Other: Voiding Method Toilet # Voids 3 1 - Labs CBC & Chem 7: 09/14/20 05:39 09/14/20 05:39 Labs: Abnormal Lab Results - Last 24 Hours (Table) 09/14/20 09/14/20 09/14/20 Range/Units 05:39 11:17 17:20 POC Glucose (mg/dL) 128 H 121 H (75-99) mg/dL Hemoglobin A1c 7.0 H (4.0-6.0) % 09/14/20 09/15/20 Range/Units 20:42 07:23 POC Glucose (mg/dL) 172 H 123 H (75-99) mg/dL Hemoglobin A1c (4.0-6.0) %
[2020-09-15 11:35] LABS: Glucose,Whole Blood 150 mg/dL (75-99)
[2020-09-15] MEDS ORDERED: IMMUNE GLOBULIN (GAMMAGARD) 20 GM in EMPTY BAG 1 BAG IV ONE (12:00)
[2020-09-15] MEDS ORDERED: IMMUNE GLOBULIN (GAMMAGARD) 5 GM in EMPTY BAG 1 BAG IV ONE (12:00)
--- NOTE | 2020-09-15 12:03 | MR ---
EXAMINATION TYPE: MR brain wo/w con DATE OF EXAM: 09/15/2020 COMPARISON: CT brain 09/13/2020 HISTORY: Unresponsiveness, possibly seizure TECHNIQUE: Multiplanar, multisequence images of the brain and brainstem is performed without and with IV contras t, utilizing 12.5 mL intravenous Gadavist . FINDINGS: Diffusion weighted images demonstrate no evidence of a recent infarct or other diffusion ab normality. There is no extra-axial fluid collection or significant white matter signal abnormality, punctate focus of hyperintensity and inversion recovery T2-weighted sequences noted, axial image 19, left parietal lobe, some periventricular hyperintensity also noted axial image 18, 3-5 lesions presen t. The ventricular system and cisternal spaces are normal in size and appearance. The brain volume is age appropriate. Midline structures demonstrate normal morphology. The craniocervical junction appears within normal limits. Post contrast images demonstrate no abnormal enhancement. The dural venous sinuses appear pa tent. The visualized sinuses are remarkable for inflammatory change in ethmoid air cells, maxillary s inus and the globes are intact. IMPRESSION: Nonspecific foci of white matter demyelination of questionable clinical significance. No subacute ischemia. Mild sinus disease.
--- NOTE | 2020-09-15 14:31 | P.PN ---
Subjective Progress Note Date: 09/15/20 Patient is doing well today. He denies any dizziness or lightheadedness. No acute events overnight. Objective - Vital Signs Vital signs: Vital Signs Temp 98.4 F 09/15/20 07:00 Pulse 65 09/15/20 07:00 Resp 17 09/15/20 07:00 BP 128/76 09/15/20 07:00 Pulse Ox 98 09/15/20 07:00 Intake & Output 09/14/20 09/15/20 09/15/20 18:59 06:59 18:59 Intake Total 200 118 Balance 200 118 Intake: Intake, IV Titration 200 Amount Immune Globulin ( 200 Gammagard) 20 gm In Empty Bag 1 bag @ Per Protocol IV .Q0M ONE Rx#: [id number] Oral 118 Other: Voiding Method Toilet # Voids 3 1 - Exam General: The patient is awake and alert, in no distress Eye: there is normal conjunctiva bilaterally. Neck: The neck is supple, there is no JVD. Cardiovascular: Normal S1-S2, no S3-S4, no murmurs. Respiratory: Lungs clear to auscultation bilaterally Gastrointestinal: Abdomen is soft, nontender Musculoskeletal: There is no pedal edema. Neurological:. Speech is normal. Skin: Skin is warm and dry - Labs CBC & Chem 7: 09/14/20 05:39 09/14/20 05:39 Labs: Abnormal Lab Results - Last 24 Hours (Table) 09/14/20 09/14/20 09/14/20 Range/Units 05:39 17:20 20:42 POC Glucose (mg/dL) 121 H 172 H (75-99) mg/dL Hemoglobin A1c 7.0 H (4.0-6.0) % 09/15/20 09/15/20 Range/Units 07:23 11:33 POC Glucose (mg/dL) 123 H 150 H (75-99) mg/dL Hemoglobin A1c (4.0-6.0) % Assessment and Plan Assessment: This is a 55-year-old male with past medical history noted below who presented to the hospital with a syncopal episode. Patient was evaluated in the ER and admitted to the hospital for further management of his medical problems noted below. 1. Suspected seizures, seen and evaluated by neurology. Started on Vimpat. EEG pending. MRI of the brain with no acute findings. Continue seizure precautions. 2. Syncopal episode, possibly seizure. Patient was seen and evaluated by cardiology. No events on potline monitor. Echocardiogram ordered. 3. History of myasthenia gravis, continue home medication. Started on IVIG per neurology as patient apparently was getting outpatient at [facility] 4. Type 2 diabetes, hold home dose of metformin and continue sliding scale insulin Today, I reviewed his medication list and lab work results. He should is maintained on chronic prednisone treatment. We will continue telemetry monitoring. Repeat lab work in the morning. PTOT evaluation Anticipated discharge home tomorrow
[2020-09-15] MEDS ORDERED: ACETAMINOPHEN TAB 500 MG TAB PO PRN (14:56)
[2020-09-15 17:08] LABS: Glucose,Whole Blood 156 mg/dL (75-99)
--- NOTE | 2020-09-15 17:48 | EEG ---
ELECTROENCEPHALOGRAM REPORT DATE OF SERVICE: 09/15/2020 PREAMBLE: This is a 55-year-old male who has episodes of unresponsiveness, possible seizure. The patient has a remote history of seizures as a child, but has been in remission for a number of years. EEG FINDINGS: This is a 21 channel routine EEG recording on a patient utilizing 10/20 international system with referential and bipolar montages. The background consists of well developed, well regulated, moderate to high amplitude activity in 9-10 hertz alpha. Background is posterior dominant and reactive to eye opening and closing. There are frequent bilateral temporal, independent, and at times bisynchronous sharp wave activity seen during this study. No electrographic seizure was recorded. Photic driving response was not clearly seen. Some drowsiness was seen with appearance of bilaterally symmetric theta frequency rhythm, but deeper stages of sleep was not clearly seen. EKG channel showed no arrhythmia. IMPRESSION: This is an abnormal EEG due to presence of bilateral temporal, independent sharp waves seen during the study. This is suggestive of focal cortical neuronal dysfunction with underlying cortical irritability and tendency for seizures. Suggest prolonged, perhaps 24 hours EEG for further evaluation of the seizure disorder. No electrographic seizure was recorded. MMODL / IJN: [id number] /
--- NOTE | 2020-09-15 19:00 | ECHOF ---
Referral Reason:Syncope MEASUREMENTS -------- HEIGHT: 182.9 cm WEIGHT: 123.4 kg BP: 112/71 IVSd: 1.2 cm (0.6 - 1.1) LVIDd: 4.6 cm (3.9 - 5.3) LVPWd: 1.2 cm (0.6 - 1.1) EDV(Teich): 97 ml IVSs: 1.9 cm LVIDs: 3.1 cm LVPWs: 1.8 cm %IVS Thck: 57 % ESV(Teich): 39 ml EF(Teich): 60 % %FS: 32 % SV(Teich): 59 ml LA Diam: 4.2 cm (2.7 - 3.8) RVIDd: 3.6 cm (< 3.3) LALs A4C: 6.5 cm LAAs A4C: 25.0 cm LAESV A-L A4C: 82 ml LAESV MOD A4C: 76 ml LALs A2C: 6.0 cm LAAs A2C: 18.9 cm LAESV A-L A2C: 50 ml LAESV MOD A2C: 46 ml LAESV(A-L): 67 ml LAESV Index (A-L): 27.39 ml/m Ao Diam: 3.3 cm (2.0 - 3.7) AV Cusp: 2.4 cm (1.5 - 2.6) EPSS: 0.7 cm MV E Timmy: 0.90 m/s MV DecT: 173 ms MV Dec Eddy: 5.2 m/s MV A Timmy: 0.72 m/s MV E/A Ratio: 1.25 MV PHT: 50 ms AV Vmax: 1.38 m/s AV maxP.63 mmHg AR Vmax: 4.32 m/s AR maxP.70 mmHg AR PHT: 1810 ms AR Dec Time: 6242 ms AR Dec Eddy: 0.7 m/s TR Vmax: 2.71 m/s TR maxP.30 mmHg RAP: 5.00 mmHg RVSP: 34.30 mmHg MV EF SLOPE: 98.80 mm/s (70 - 150) MV EXCURSION: 15.86 mm (> 18.000) FINDINGS -------- Sinus rhythm. This was a technically good study. The left ventricular size is normal. There is borderline concentric left ventricular hypertrophy. Overall left ventricular systolic function is normal with, an EF between 60 - 65 %. The right ventricle is mildly enlarged. Normal LA size by volume 22+/-6 ml/m2. The right atrium is normal in size. Interatrial and interventricular septum intact. There is mild aortic regurgitation. Mild mitral annular calcification present. Mild mitral regurgitation is present. Mild tricuspid regurgitation present. There is mild pulmonary hypertension. The right ventricular systolic pressure, as measured by Doppler, is 34.30mmHg. Trace/mild (physiologic) pulmonic regurgitation. The aortic root size is normal. Normal inferior vena cava with normal inspiratory collapse consistent with estimated right atrial pre ssure of 5 mmHg. There is no pericardial effusion. CONCLUSIONS -------- 1. The left ventricular size is normal. 2. There is borderline concentric left ventricular hypertrophy. 3. Overall left ventricular systolic function is normal with, an EF between 60 - 65 %. 4. The right ventricle is mildly enlarged. 5. There is mild aortic regurgitation. 6. Mild mitral annular calcification present. 7. Mild mitral regurgitation is present. 8. Mild tricuspid regurgitation present. 9. There is mild pulmonary hypertension. 10. The right ventricular systolic pressure, as measured by Doppler, is 34.30mmHg. 11. Trace/mild (physiologic) pulmonic regurgitation. 12. There is no pericardial effusion. PHYSICIAN PEDIATRICIAN: MARILOU Gibson
[2020-09-15] MEDS: ATORVASTATIN 80 MG TAB PO SCH (20:17)
--- NOTE | 2020-09-15 20:25 | P.PN ---
Subjective Progress Note Date: 09/15/20 Patient initially seen by Dr. Lucius Esposito. Please refer to his note for details. Patient is a 55-year-old male who has been diagnosed with myasthenia gravis in January 2020, type 2 diabetes, hyperlipidemia, and episodes of unresponsiveness. Patient had an episode of unresponsiveness for about 1 hour. He had Other spells, as mentioned in detail report in Dr. Esposito's note. Patient has history of possible seizures in childhood for which she was on phenobarbital and required yearly EEG testing. His possible seizures went in remission at age 12-13. Patient states his symptoms of myasthenia gravis included slurred speech especially at the end of the day, double vision. He states he was antibody- positive, and also had undergone checking for thymoma which was negative. Patient is currently taking Mestinon 60 mg 3 times a day, prednisone 20 mg daily, Imuran 100 mg daily. Patient states that oral medications were not effective, and IVIG is most effective. He is on maintenance treatment with IVIG. Objective - Vital Signs Vital signs: Vital Signs Temp 98.5 F 09/15/20 14:51 Pulse 71 09/15/20 14:51 Resp 16 09/15/20 14:51 BP 102/69 09/15/20 14:51 Pulse Ox 96 09/15/20 14:51 Intake & Output 09/14/20 09/15/20 09/15/20 18:59 06:59 18:59 Intake Total 200 144.125 Balance 200 144.125 Intake: Intake, IV Titration 200 26.125 Amount Immune Globulin ( 200 Gammagard) 20 gm In Empty Bag 1 bag @ Per Protocol IV .Q0M ONE Rx#: [id number] Immune Globulin ( 26.125 Gammagard) 20 gm In Empty Bag 1 bag @ Per Protocol IV .Q0M ONE Rx#: [id number] Oral 118 Other: Voiding Method Toilet # Voids 3 1 3 # Bowel Movements 1 - Exam Patient is a middle aged male, in no distress. Patient is alert awake oriented to time place and person. Speech and language functions are normal. Patient has very minimal slurring. Attention, concentration and fund of knowledge is adequate. On cranial examination, pupils are round and reacting to light, visual powell are full on confrontation, extraocular muscles are intact with no nystagmus. No ptosis. Face is symmetric, tongue protrudes to the midline. Patient's strength of upper and lower facial muscles appears normal. Palatal elevation and sensation normal, hearing and shoulder shrug normal, facial sensation normal. Patient's strength of tongue pushing inside the cheek appears normal. Neck flexion appears slightly weak. On muscle strength testing, there is no pronator drift and the strength is normal in arms and legs distally and proximally. Deep tendon reflexes are symmetric and plantars downgoing. Sensory to touch is equal with no neglect. Cerebellar function showed no ataxia for [id number] testing. No dysdiadochokinesia. Tone and bulk of muscles normal. Gait normal. On general examination, there is no carotid bruit or murmur, S1-S2 audible. Abdomen is soft nontender. Chest is clear. Peripheral pulses are present. No edema. - Labs CBC & Chem 7: 09/14/20 05:39 09/14/20 05:39 Labs: Abnormal Lab Results - Last 24 Hours (Table) 09/14/20 09/14/20 09/14/20 Range/Units 05:39 17:20 20:42 POC Glucose (mg/dL) 121 H 172 H (75-99) mg/dL Hemoglobin A1c 7.0 H (4.0-6.0) % 09/15/20 09/15/20 Range/Units 07:23 11:33 POC Glucose (mg/dL) 123 H 150 H (75-99) mg/dL Hemoglobin A1c (4.0-6.0) % Assessment and Plan Assessment: * Partial complex seizures. Seizures probably manifesting with unresponsiveness (had one yesterday and was unresponsive for 1 hour, 2 prior episodes (July and August 2020),one of episode was not clear seizure episode since quick onset and quick recovery). Also this current episode he had left gaze deviation, arched back, prolonged unresponsiveness and had positictal confusion which is highly suspicious for seizure). * History of probable seizures in childhood, treated with phenobarbital. Patient has been off phenobarbital since age 12-13. * Myasthenia Gravis (Diagnosed in 01/2020) * Diabetes type 2 * Hyperlipidemia Plan: Continue Vimpat 50 mg 1 tablet twice a day (Loaded with Vimpat 100 mg once). After 1 week, would recommend increasing dose to 100 mg twice a day. EEG was performed. It was abnormal with evidence of bilateral temporal, independent sharp waves, suggestive of focal cortical neuronal dysfunction with underlying cortical irritability and tendency for seizures. MRI the brain with and without revealed nonspecific foci of white matter demyelination of questionable clinical significance. No subacute ischemia. Mild sinus disease. 2-D echo to be normal left-ventricular size. Borderline concentric LVH, EF is 60-65%. Mild AR. Mild MR. TSH is normal 2.65 Orthostatic vitals, supine blood pressure 115/72, pulse is 69, sitting up was 115/70 and pulse of 76 and standing up 121/71, pulse rate 82. Negative orthostatics. Patient was restarted on his home medication of Mestinon 60mg 1 tab tid, Imuran 100mg daily and Prednisone 20mg daily. Patient has received maintenance dose of his IVIG 45gm once yesterday and one today (his monthly dose). Patient was notified that per [place] DMV he is to no driving for 6 month until no further episodes of seizures last unresponsiveness. Also he was recommended to avoid climbing ladders, operate dangerous machinery or unsupervised swimming. Neurologically clear for discharge in a.m.
[2020-09-15 20:26] LABS: Glucose,Whole Blood 157 mg/dL (75-99)
[2020-09-16 01:51] VITALS: PULSE 63
[2020-09-16 07:27] LABS: Glucose,Whole Blood 122 mg/dL (75-99)
[2020-09-16 07:40] VITALS: BP 144/91; RESP 17; TEMP 97.8
[2020-09-16] MEDS: INSULIN ASPART (NovoLOG) 100 UNIT/ML VIAL SQ SCH ×2 (08:27→12:22)
[2020-09-16] MEDS: HEPARIN SODIUM,PORCINE/PF 5,000 UNIT/0.5 ML SYRINGE SQ SCH (08:31)
[2020-09-16] MEDS: azaTHIOprine 50 MG TAB PO SCH (08:31)
[2020-09-16] MEDS: PANTOPRAZOLE 40 MG TABLET PO SCH (08:31)
[2020-09-16] MEDS: PYRIDOSTIGMINE 60 MG TAB PO SCH (08:31)
[2020-09-16] MEDS: LACOSAMIDE 50 MG TABLET PO SCH (08:32)
[2020-09-16] MEDS: valACYclovir 500 MG TAB PO SCH (08:32)
[2020-09-16] MEDS: predniSONE 20 MG TAB PO SCH (08:32)
[2020-09-16] MEDS: METOPROLOL TARTRATE 25 MG TAB PO SCH (08:35)
--- NOTE | 2020-09-16 09:42 | P.PN ---
Subjective Progress Note Date: 09/16/20 09/16/2020: Patient is laying comfortably in the bed. Offers no complaints. No new symptoms. Tolerated IVIG very well. No further seizures. 09/15/2020: Patient initially seen by Dr. Lucius Esposito. Please refer to his note for details. Patient is a 55-year-old male who has been diagnosed with myasthenia gravis in January 2020, type 2 diabetes, hyperlipidemia, and episodes of unresponsiveness. Patient had an episode of unresponsiveness for about 1 hour. He had Other spells, as mentioned in detail report in Dr. Esposito's note. Patient has history of possible seizures in childhood for which she was on phenobarbital and required yearly EEG testing. His possible seizures went in remission at age 12-13. Patient states his symptoms of myasthenia gravis included slurred speech especially at the end of the day, double vision. He states he was antibody- positive, and also had undergone checking for thymoma which was negative. Patient is currently taking Mestinon 60 mg 3 times a day, prednisone 20 mg daily, Imuran 100 mg daily. Patient states that oral medications were not effective, and IVIG is most effective. He is on maintenance treatment with IVIG. Objective - Vital Signs Vital signs: Vital Signs Temp 97.8 F 09/16/20 07:00 Pulse 63 09/16/20 07:00 Resp 17 09/16/20 07:00 BP 144/91 09/16/20 07:00 Pulse Ox 98 09/16/20 07:00 Intake & Output 09/15/20 09/16/20 09/16/20 18:59 06:59 18:59 Intake Total 437.125 358 Balance 437.125 358 Intake: Intake, IV Titration 83.125 Amount Immune Globulin ( 57 Gammagard) 20 gm In Empty Bag 1 bag @ Per Protocol IV .Q0M ONE Rx#: [id number] Immune Globulin ( 26.125 Gammagard) 20 gm In Empty Bag 1 bag @ Per Protocol IV .Q0M ONE Rx#: [id number] Oral 354 358 Other: # Voids 3 3 # Bowel Movements 1 - Exam Patient is a middle aged male, in no distress. Patient is alert awake oriented to time place and person. Speech and language functions are normal. Patient has very minimal raspy/hoarse voice, but no slurring. Attention, concentration and fund of knowledge is adequate. On cranial examination, pupils are round and reacting to light, visual powell are full on confrontation, extraocular muscles are intact with no nystagmus. No ptosis. Face is symmetric, tongue protrudes to the midline. Patient's strength of upper and lower facial muscles appears normal. Palatal elevation and sensation normal, hearing and shoulder shrug normal, facial sensation normal. Patient's strength of tongue pushing inside the cheek appears normal. Neck flexion appears slightly weak. On muscle strength testing, there is no pronator drift and the strength is normal in arms and legs distally and proximally. Deep tendon reflexes are 1-1+, symmetric and plantars downgoing. Sensory to touch is equal with no neglect. Cerebellar function showed no ataxia for ukpdff-pz-[id number] testing. No dysdiad ochokinesia. Tone and bulk of muscles normal. Gait normal. On general examination, there is no carotid bruit or murmur, S1-S2 audible. Abdomen is soft nontender. Chest is clear. Peripheral pulses are present. No edema. - Labs CBC & Chem 7: 09/14/20 05:39 09/14/20 05:39 Labs: Abnormal Lab Results - Last 24 Hours (Table) 09/15/20 09/15/20 09/15/20 Range/Units 11:33 17:06 20:25 POC Glucose (mg/dL) 150 H 156 H 157 H (75-99) mg/dL 09/16/20 Range/Units 07:25 POC Glucose (mg/dL) 122 H (75-99) mg/dL Assessment and Plan Assessment: * Partial complex seizures. Seizures probably manifesting with unresponsiveness (had one prior to admission and was unresponsive for 1 hour, 2 prior episodes (July and August 2020),one of episode was not clear seizure episode since quick onset and quick recovery). Also this current episode he had left gaze deviation, arched back, prolonged unresponsiveness and had positictal confusion which is highly suspicious for seizure). * History of probable seizures in childhood, treated with phenobarbital. Patient has been off phenobarbital since age 12-13. * Myasthenia Gravis (Diagnosed in 01/2020) * Diabetes type 2 * Hyperlipidemia Plan: Continue Vimpat 50 mg 1 tablet twice a day (Loaded with Vimpat 100 mg once). After 1 week, would recommend increasing dose to 100 mg twice a day. EEG was performed. It was abnormal with evidence of bilateral temporal, independent sharp waves, suggestive of focal cortical neuronal dysfunction with underlying cortical irritability and tendency for seizures. MRI the brain with and without revealed nonspecific foci of white matter demyelination of questionable clinical significance. No subacute ischemia. Mild sinus disease. 2-D echo to be normal left-ventricular size. Borderline concentric LVH, EF is 60-65%. Mild AR. Mild MR. TSH is normal 2.65 Orthostatic vitals, supine blood pressure 115/72, pulse is 69, sitting up was 115/70 and pulse of 76 and standing up 121/71, pulse rate 82. Negative orthostatics. Patient was restarted on his home medication of Mestinon 60mg 1 tab tid, Imuran 100mg daily and Prednisone 20mg daily. Patient has completed maintenance treatment with IVIG. 2-D echo revealed normal left-ventricular size, borderline concentric LVH, EF is between 60-65%. Mild AR. Patient was notified that per [place] DMV he is to no driving for 6 month until no further episodes of seizures last unresponsiveness. Also he was recommended to avoid climbing ladders, operate dangerous machinery or unsupervised swimming. Neurologically clear for discharge in a.m.
--- NOTE | 2020-09-16 11:34 | P.DS ---
Providers Date of admission: 09/15/20 10:23 Expected date of discharge: 09/16/20 Attending physician: Joel Mosher MD Consults: 09/13/20 19:07 Consult Physician Urgent Consulting Provider: Lucius Esposito Consult Reason/Comments: Unresponsive episode, possible seizure Do you want consulting provider notified?: Yes 09/13/20 22:54 Consult Physician Urgent Consulting Provider: Joaquin De La Torre Consult Reason/Comments: syncope, prolonged qt, suspected cardiogenic Do you want consulting provider notified?: Yes Primary care physician: Physician Nonstaff Hospital Course: This is a 55-year-old male with past medical history noted below who presented to the hospital with a syncopal episode. Patient was evaluated in the ER and admitted to the hospital for further management of his medical problems noted below. 1. New onset seizure seen and evaluated by neurology. Started on Vimpat. EEG showed some abnormal waveform. MRI of the brain with no acute findings. 2. Syncopal episode, possibly seizure. Patient was seen and evaluated by cardiology. 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 Echocardiogram ordered. 3. History of myasthenia gravis, continue home medication. Finished course of IVIG here in the hospital 4. Type 2 diabetes, resume home medications T patient was seen, evaluated, and examined on the day of discharge. His overall condition remains stable. No seizure episodes during this hospitalization. He was started on a loading dose of Vimpat as directed by neurology and was given instruction to take Vimpat 50 mg twice daily for 1 week then 100 mg twice daily. Follow-up in the office as directed. Patient will be discharged home in a stable condition. For further details about this hospitalization please refer to the electronic chart. Time spent on discharge > 30 minutes including counseling and coordination of care Patient Condition at Discharge: Stable Plan - Discharge Summary Discharge Rx Participant: No New Discharge Prescriptions: New Lacosamide [Vimpat] 50 mg PO BID #14 tablet Lacosamide [Vimpat] 100 mg PO BID 30 Days #60 tab Continue Metoprolol Tartrate [Lopressor] 25 mg PO DAILY valACYclovir HCL [Valtrex] 500 mg PO BID Rosuvastatin Calcium [Crestor] 40 mg PO DAILY Pyridostigmine [Mestinon] 60 mg PO TID EPINEPHrine (Auto Inject) [Epipen] 0.3 mg IM ONCE PRN PRN Reason: Anaphylaxis metFORMIN HCL [Glucophage] 1,000 mg PO BID Glycopyrrolate [Robinul] 1 mg PO Q8H azaTHIOprine [Imuran] 100 mg PO DAILY Omeprazole 20 mg PO DAILY Discharge Medication List EPINEPHrine (Auto Inject) [Epipen] 0.3 mg IM ONCE PRN 09/13/20 [History] Glycopyrrolate [Robinul] 1 mg PO Q8H 09/13/20 [History] Metoprolol Tartrate [Lopressor] 25 mg PO DAILY 09/13/20 [History] Omeprazole 20 mg PO DAILY 09/13/20 [History] Pyridostigmine [Mestinon] 60 mg PO TID 09/13/20 [History] Rosuvastatin Calcium [Crestor] 40 mg PO DAILY 09/13/20 [History] azaTHIOprine [Imuran] 100 mg PO DAILY 09/13/20 [History] metFORMIN HCL [Glucophage] 1,000 mg PO BID 09/13/20 [History] valACYclovir HCL [Valtrex] 500 mg PO BID 09/13/20 [History] Lacosamide [Vimpat] 50 mg PO BID #14 tablet 09/16/20 [Rx] Lacosamide [Vimpat] 100 mg PO BID 30 Days #60 tab 09/16/20 [Rx] Follow up Appointment(s)/Referral(s): None,Stated [REFERRING] - 1-2 days Activity/Diet/Wound Care/Special Instructions: States will follow up with his Neurologist at [facility] Discharge Disposition: HOME SELF-CARE
[2020-09-16 12:02] LABS: Glucose,Whole Blood 150 mg/dL (75-99)
== END 2020-09-16 14:17 | disposition home or self-care (01) | DRG 101 ==
LOC: EC 16:58 → 6NMEDSUR 19:07 → OBSVTOIN 09-15 10:23
PROVIDERS: ADMIT Internal Medicine; ATTEND Internal Medicine
DX: G40.209 Localization-related (focal) (partial) symptomatic epilepsy and epileptic syndromes with complex partial seizures, not intractable, without status epilepticus (principal); G70.00 Myasthenia gravis without (acute) exacerbation; I10 Essential (primary) hypertension; E78.5 Hyperlipidemia, unspecified; K58.9 Irritable bowel syndrome, unspecified; E11.9 Type 2 diabetes mellitus without complications; Z79.899 Other long term (current) drug therapy; R94.31 Abnormal electrocardiogram [ECG] [EKG]; Z80.49 Family history of malignant neoplasm of other genital organs; Z82.49 Family history of ischemic heart disease and other diseases of the circulatory system; Z86.16 Personal history of COVID-19; Z88.0 Allergy status to penicillin; Z79.84 Long term (current) use of oral hypoglycemic drugs
CPT/HCPCS: 36415; 70450; 70496; 70498; 70553; 71045; 72125; 72170; 80053; 80306; 80320; 81003; 82550; 83036; 84146; 84443; 84484; 85025; 85610; 85730; 93005; 93306; 94660; 95819; 96360; 99291